=== PATIENT | female | born 1960 | race Caucasian/White ===

== ENCOUNTER 2018-07-25 14:53 | Emergency (ER) | payer BC ==
[2018-07-25] MEDS: KETOROLAC 15 MG INJ IM (16:05)
[2018-07-25 16:21] LABS: ADD UMIC NO; UR ASCORBIC ACID 20 mg/dL (NEGATIVE); UR BILIRUBIN (Dip) NEGATIVE (NEGATIVE); UR BLOOD (Dip) NEGATIVE (NEGATIVE); UR CLARITY CLEAR (CLEAR); UR COLOR YELLOW (YELLOW); UR GLUCOSE (Dip) NEGATIVE (NEGATIVE); UR KETONES (Dip) TRACE mg/dL (NEGATIVE); UR LEUKOCYTE ESTERASE (Dip) NEGATIVE Leu/ul (NEGATIVE); UR NITRITE (Dip) NEGATIVE (NEGATIVE); UR SPECIFIC GRAVITY (Dip) 1.021 (1.003-1.030); UR TOTAL PROTEIN (Dip) NEGATIVE (NEGATIVE); UR UROBILINOGEN (Dip) NEGATIVE (NEGATIVE)
== END 2018-07-25 16:49 | disposition home or self-care (01) ==
LOC: FTE 14:53
DX: M54.5 Low back pain (principal)
CPT/HCPCS: 81003; 96372; 99284-25

== ENCOUNTER 2018-11-18 10:58 | Emergency (ER) | payer BC ==
[2018-11-18] MEDS: HYDROCODONE/APAP (10/325) TAB PO (11:37)
[2018-11-18] MEDS: ONDANSETRON (ODT) 4 MG TAB ODT (11:37)
== END 2018-11-18 12:49 | disposition home or self-care (01) ==
LOC: FTE 10:58
DX: R51 Headache (principal); R11.10 Vomiting, unspecified
CPT/HCPCS: 99283; Z7502